=== PATIENT | female | born 1965 | race Caucasian/White ===

== ENCOUNTER 2021-05-12 03:59 | Inpatient (IN) | payer MEDICARE ==
--- NOTE | 2021-05-12 04:03 | ED ---
Recheck HPI - General Stated Complaint: Kidney Stones Time Seen by Provider: 05/12/21 04:02 - Related Data Allergies Allergy/AdvReac Type Severity Reaction Status Date / Time morphine AdvReac Hallucinati Verified 05/12/21 04:20 ons pregabalin [From Lyrica] AdvReac Rash/Hives Verified 05/12/21 04:20 Review of Systems ROS Statement: Those systems with pertinent positive or pertinent negative responses have been documented in the HPI. ROS Other: All systems not noted in ROS Statement are negative. Course Vital Signs 05/12/21 04:11 Temperature 97.8 F Pulse Rate 74 Respiratory 18 Rate Blood Pressure 144/80 O2 Sat by Pulse 95 Oximetry Disposition Clinical Impression: Intractable pain, Kidney stones Narrative: 1cm Ureteral Stone Disposition: ADMITTED IP TO THIS HOSP Condition: Fair Is patient prescribed a controlled substance at d/c from ED?: No Referrals: Rajinder Randall MD [Primary Care Provider] - 1-2 days
[2021-05-12] MEDS ORDERED: SODIUM CHLORIDE 0.9% 500 ML 500 ML IV STA (04:19)
[2021-05-12] MEDS ORDERED: HYDROmorphone 1 MG/ML 1 ML SYRINGE IVP STA (04:19)
[2021-05-12] MEDS ORDERED: TAMSULOSIN 0.4 MG CAP.ER.24H PO STA (04:19)
[2021-05-12] MEDS ORDERED: KETOROLAC 15 MG/ML 1 ML VIAL IVP STA (04:19)
[2021-05-12] MEDS ORDERED: ONDANSETRON 4 MG/2 ML VIAL IVP STA (04:19)
[2021-05-12] MEDS ORDERED: NALOXONE 0.4 MG/ML 1 ML VIAL IV PRN (05:07)
[2021-05-12] MEDS: ONDANSETRON 4 MG/2 ML VIAL IVP PRN ×2 (05:57→21:57)
[2021-05-12] MEDS: SODIUM CHLORIDE 0.9% 1,000 ML IV SCH ×2 (05:58→21:48)
[2021-05-12] MEDS ORDERED: PROMETHAZINE 25 MG TAB PO PRN (09:04)
[2021-05-12] MEDS: LOSARTAN 25 MG TAB PO SCH (09:47)
[2021-05-12] MEDS: FAMOTIDINE 20 MG/2 ML VIAL IV SCH (09:47)
[2021-05-12] MEDS: FLUoxetine HCL 20 MG CAP PO SCH (09:48)
[2021-05-12] MEDS: HEPARIN SODIUM,PORCINE/PF 5,000 UNIT/0.5 ML SYRINGE SQ SCH (09:48)
--- NOTE | 2021-05-12 09:55 | P.HPIM ---
History of Present Illness This is a pleasant 56 years old female with past medical history of hypertension, irritable bowel syndrome/fibromyalgia, GERD, chronic back pain. She is a patient of Dr. Prakash Calvillo Patient is transferred from [facility] due to 1 cm kidney stone and pain control. She has pain when day prior to coming to the emergency room, on the right lower abdomen in the right flank rated as 10/10 in severity with nausea vomiting but she denies hematuria or dysuria. Her abdominal pain is suspected due to kidney stone and emergency room and she was admitted with pain management and surgical consults. Her surgeon is Dr. Mccracken He denies chest pain or dyspnea. No change in urine or bowel habits. No fever Vital signs stable In reviewing [place] record CBC is unremarkable with WBC of 6.7, hemoglobin 13.1, platelets 178 Sodium normal at 141, potassium 3.5. Creatinine normal at 0.6. Liver enzymes elevated with AST 30 and ALT 31 and normal bilirubin at 0.5. Lipase normal at 116. Urinalysis is not suspicious of infection but there is evidence of hematuria with RBC is more than 100, WBC not seen, protein is negative. CT of the abdomen and pelvis without contrast reports: Moderate right hydronephrosis. There is 1 cm obstructing calculus of the right ureteropelvic junction Review of Systems CONSTITUTIONAL: No fever, no malaise, no fatigue. HEENT: No recent visual problems or hearing problems. Denied any sore throat. CARDIOVASCULAR: No orthopnea, PND, no palpitations, no syncope. PULMONARY: No shortness of breath, no cough, no hemoptysis. GASTROINTESTINAL: No diarrhea, no nausea, no vomiting, no abdominal pain. Normoactive bowel sounds. NEUROLOGICAL: No headaches, no weakness, no numbness. HEMATOLOGICAL: Denies any bleeding or petechiae. GENITOURINARY: Denies any burning micturition, frequency, or urgency. MUSCULOSKELETAL/RHEUMATOLOGICAL: Denies any joint pain, swelling, or any muscle pain. ENDOCRINE: Denies any polyuria or polydipsia. Past Medical History Past Medical History: Hypertension Additional Past Medical History / Comment(s): IBS, fibromyalgia, GERD, chronic back pain, History of Any Multi-Drug Resistant Organisms: None Reported Past Surgical History: Back Surgery, Cholecystectomy, Hysterectomy Past Psychological History: Anxiety, Depression Smoking Status: Former smoker Past Alcohol Use History: None Reported Past Drug Use History: None Reported Medications and Allergies Home Medications Medication Instructions Recorded Confirmed Type Atorvastatin [Lipitor] 20 mg PO HS 05/12/21 05/12/21 History Dicyclomine [Bentyl] 20 mg PO Q6H 05/12/21 05/12/21 History FLUoxetine HCL [PROzac] 40 mg PO DAILY 05/12/21 05/12/21 History Losartan [Cozaar] 25 mg PO DAILY 05/12/21 05/12/21 History Meloxicam [Mobic] 15 mg PO DAILY 05/12/21 05/12/21 History Ondansetron HCl [Zofran] 4 mg PO Q8H PRN 05/12/21 05/12/21 History QUEtiapine XR [SEROquel XR] 200 mg PO HS 05/12/21 05/12/21 History SUMAtriptan SUCCINATE [Imitrex] 4 mg SQ BID PRN 05/12/21 05/12/21 History traMADol HCL 50 mg PO TID 05/12/21 05/12/21 History Allergies Allergy/AdvReac Type Severity Reaction Status Date / Time pregabalin [From Lyrica] Allergy Rash/Hives Verified 05/12/21 08:28 morphine AdvReac Hallucinati Verified 05/12/21 08:28 ons Physical Exam Vitals: Vital Signs Temp Pulse Resp BP Pulse Ox 05/12/21 06:00 97.6 F 80 18 135/80 96 05/12/21 04:11 97.8 F 74 18 144/80 95 Intake and Output 05/11/21 05/12/21 05/12/21 22:59 06:59 14:59 Other: Weight 86.183 kg GENERAL: The patient is alert and oriented x3, not in any acute distress. Well developed, well nourished. HEENT: Pupils are round and equally reacting to light. EOMI. No scleral icterus. No conjunctival pallor. Normocephalic, atraumatic. No pharyngeal erythema. No thyromegaly. CARDIOVASCULAR: S1 and S2 present. No murmurs, rubs, or gallops. PULMONARY: Chest is clear to auscultation, no wheezing or crackles. -ABDOMEN: Soft, Mild right flank and lower quadrant abdominal tenderness with no rebound tenderness, nondistended, normoactive bowel sounds. No palpable organomegaly. MUSCULOSKELETAL: No joint swelling or deformity. EXTREMITIES: No cyanosis, clubbing, or pedal edema. NEUROLOGICAL: Gross neurological examination did not reveal any focal deficits. SKIN: No rashes. No petechiae Assessment and Plan Assessment: Severe right flank pain Right ureteropelvic junction stone with right hydronephrosis Plan: This is a pleasant 56 years old female who presents with right kidney stone and hydronephrosis Continue with pain management Urology consult IV hydration Labs and medication were reviewed.. Continue same treatment. Continue with symptomatic treatment. Resume home medication. Monitor lytes and vitals. DVT and GI prophylaxis. Further recommendationsas per clinical course of the patient DVT prophylaxis: Subcutaneous heparin GI Prophylaxis: Pepcid PT/OT: Pending
[2021-05-12] MEDS: DICYCLOMINE 20 MG TAB PO SCH ×2 (11:37→21:49)
--- NOTE | 2021-05-12 12:01 | P.GSCN ---
History of Present Illness Consult date: 05/12/21 History of present illness: 56-year-old female transferred last night from [facility] in [place] with a 1 cm right UPJ stone and persistent colic. The colic and been going on 24-48 hours. She has had intermittent back pain for several weeks. She did have a right ureteral stone removed 2 years ago by . There were no remaining stones at that point in time. She's had no fever or chills. She is still in discomfort at this point in time. Review of Systems All systems: negative - Constitutional Denies fever, Denies weight loss - EENT Eyes: denies blurred vision Ears, nose, mouth and throat: Denies dysphagia - Cardiovascular Denies chest pain, Denies shortness of breath - Respiratory Denies cough, Denies 7 - Gastrointestinal Reports as per HPI - Genitourinary Genitourinary: Denies dysuria, Denies hematuria - Integumentary Denies rash, Denies unusual bruising - Neurological Denies headaches, Denies syncope - Hematologic/Lymphatic Denies easy bleeding, Denies easy bruising Past Medical History Past Medical History: Hypertension Additional Past Medical History / Comment(s): IBS, fibromyalgia, GERD, chronic back pain, History of Any Multi-Drug Resistant Organisms: None Reported Past Surgical History: Back Surgery, Cholecystectomy, Hysterectomy Past Psychological History: Anxiety, Depression Smoking Status: Former smoker Past Alcohol Use History: None Reported Past Drug Use History: None Reported - Past Family History Father Family Medical History: Congestive Heart Failure (CHF), Diabetes Mellitus Additional Family Medical History / Comment(s): Open heart surgery Mother Family Medical History: Diabetes Mellitus Medications and Allergies Home Medications Medication Instructions Recorded Confirmed Type Atorvastatin [Lipitor] 20 mg PO HS 05/12/21 05/12/21 History Dicyclomine [Bentyl] 20 mg PO Q6H 05/12/21 05/12/21 History FLUoxetine HCL [PROzac] 40 mg PO DAILY 05/12/21 05/12/21 History Losartan [Cozaar] 25 mg PO DAILY 05/12/21 05/12/21 History Meloxicam [Mobic] 15 mg PO DAILY 05/12/21 05/12/21 History Ondansetron HCl [Zofran] 4 mg PO Q8H PRN 05/12/21 05/12/21 History QUEtiapine XR [SEROquel XR] 200 mg PO HS 05/12/21 05/12/21 History SUMAtriptan SUCCINATE [Imitrex] 4 mg SQ BID PRN 05/12/21 05/12/21 History traMADol HCL 50 mg PO TID 05/12/21 05/12/21 History Allergies Allergy/AdvReac Type Severity Reaction Status Date / Time pregabalin [From Lyrica] Allergy Rash/Hives Verified 05/12/21 08:28 morphine AdvReac Hallucinati Verified 05/12/21 08:28 ons Surgical - Exam Vital Signs Temp Pulse Resp BP Pulse Ox 97.8 F 74 18 144/80 95 05/12/21 04:11 05/12/21 04:11 05/12/21 04:11 05/12/21 04:11 05/12/21 04:11 - General well developed, well nourished, moderate distress - Eyes PERRL - ENT no hearing loss - Neck trachea midline - Respiratory normal expansion, normal respiratory effort - Cardiovascular Rhythm: regular - Abdomen Abdomen: soft, tender - Integumentary no rash, no growths - Neurologic normal sensation - Musculoskeletal normal posture - Psychiatric oriented to time, oriented to person, oriented to place, speech is normal, memory intact Results - Imaging CT scan - abdomen: report reviewed, image reviewed CT scan - pelvis: report reviewed, image reviewed Assessment and Plan Assessment: Impression: 1 cm UPJ stone with colic. Recommendations: I discussed with patient's options including no treatment, shockwave lithotripsy, right ureteroscopy laser lithotripsy and percutaneous nephrostolithotomy. Due to the persistent pain she would like something done. I will set up for right ureteroscopy with laser lithotripsy and stent placement for tomorrow.
--- NOTE | 2021-05-12 12:49 | XR ---
KUB HISTORY: Right ureteral stone Frontal KUB and 2 images, no comparisons Surgical clips are present in the right upper quadrant. Questionable patchy density at the left costo phrenic angle level, blunting the left chest phrenic angle. Fallopian tubal ligation clips are suspec arie within the pelvis. Calcifications are noted within the pelvis which are indeterminate, possible p hleboliths. Overlying bowel gas may obscure detail. There is a slight spinal curvature, degenerative disc changes present in the visualized spine. No evident bowel obstruction or pneumoperitoneum. IMPRESSION: Indeterminate pelvic calcifications. Postop changes. Question pleural effusion or pleural thickening, possible associated pneumonia or atelectasis, consider chest x-ray correlation.
[2021-05-12] MEDS: HYDROmorphone 1 MG/ML 1 ML SYRINGE IVP PRN ×2 (13:23→20:00)
[2021-05-12] MEDS ORDERED: ATORVASTATIN 20 MG TAB PO SCH (21:00)
[2021-05-12] MEDS: traMADol 50 MG TAB PO PRN (22:08)
[2021-05-12 22:17] LABS: Basophils % (A) 0 %; Eosinophils # (A) 0.1 k/uL (0-0.7); Eosinophils % (A) 2 %; HCT 37.2 % (34.0-46.0); HGB 12.5 gm/dL (11.4-16.0); Lymphocytes # (A) 1.5 k/uL (1.0-4.8); Lymphocytes % (A) 21 %; MCH 31.4 pg (25.0-35.0); MCHC 33.7 g/dL (31.0-37.0); MCV 93.3 fL (80.0-100.0); Mean Platelet Volume 8.2; Monocytes # (A) 0.4 k/uL (0-1.0); Monocytes % (A) 5 %; Neutrophils # (A) 5.2 k/uL (1.3-7.7); Neutrophils % (A) 71 %; Platelet Count 150 k/uL (150-450); RBC 3.99 m/uL (3.80-5.40); RDW 14.3 % (11.5-15.5); WBC 7.3 k/uL (3.8-10.6)
[2021-05-12 22:29] LABS: African American GFR (CKD) >90 (>60 ml/min/1.73 sqM); Anion Gap 6 mmol/L; Blood Urea Nitrogen 10 mg/dL (7-17); Calcium 8.2 mg/dL (8.4-10.2); Carbon Dioxide 24 mmol/L (22-30); Chloride 110 mmol/L (98-107); Glucose 137 mg/dL (74-99); Non-African American GFR(CKD) >90 (>60 ml/min/1.73 sqM); Potassium 3.6 mmol/L (3.5-5.1); Sodium 140 mmol/L (137-145)
[2021-05-13] MEDS: LACTATED RINGERS 1,000 ML IV SCH ×2 (00:11→16:29)
[2021-05-13] MEDS: DICYCLOMINE 20 MG TAB PO SCH ×4 (00:14→17:46)
[2021-05-13] MEDS: FAMOTIDINE 20 MG/2 ML VIAL IV SCH ×2 (00:14→08:34)
[2021-05-13] MEDS: HEPARIN SODIUM,PORCINE/PF 5,000 UNIT/0.5 ML SYRINGE SQ SCH ×2 (00:14→08:11)
[2021-05-13 00:22] LABS: Glucose,Whole Blood 132 mg/dL (75-99)
[2021-05-13] MEDS: QUEtiapine 100 MG TAB PO SCH ×2 (00:28→08:11)
[2021-05-13] MEDS: SODIUM CHLORIDE 0.9% 1,000 ML IV SCH ×2 (03:13→12:14)
[2021-05-13] MEDS ORDERED: HYDROmorphone 0.5 MG/0.5 ML SYRINGE IVP PRN (07:00)
[2021-05-13] MEDS: traMADol 50 MG TAB PO PRN (07:59)
[2021-05-13] MEDS: LOSARTAN 25 MG TAB PO SCH (08:11)
[2021-05-13] MEDS: FLUoxetine HCL 20 MG CAP PO SCH (08:11)
--- NOTE | 2021-05-13 09:11 | XR ---
EXAMINATION TYPE: XR chest 1V DATE OF EXAM: 05/13/2021 COMPARISON: CT abdomen pelvis from outside institution 07/01/2020 HISTORY: Hypoxia TECHNIQUE: Single frontal view of the chest is obtained. FINDINGS: There is no pleural effusion or pneumothorax seen. Possible subsegmental basilar atelectat ic changes are noted, there is a prominent epicardial fat pad present. Linear increased density along the lateral chest margin may reflect scarring. There is persistent elevation of the right hemidiaphr agm. The cardiac silhouette size is within normal limits. The osseous structures are intact. IMPRESSION: Possible basilar atelectasis
[2021-05-13] MEDS ORDERED: HYDROcodone/APAP 7.5-325MG 1 EACH TAB PO PRN (09:51)
[2021-05-13] MEDS ORDERED: IV FLUID CONTINUATION 300 ML IV ONE (10:49)
[2021-05-13] MEDS ORDERED: ONDANSETRON 4 MG/2 ML VIAL IVP ONE (10:51)
[2021-05-13] MEDS ORDERED: DEXAMETHASONE SOD PHOSPHATE 4 MG/ML 1 ML VIAL IVP ONE (10:52)
[2021-05-13] MEDS ORDERED: SCOPOLAMINE 1.5MG/72HR PATCH TRANSDERM ONE (10:52)
[2021-05-13] MEDS ORDERED: PROPOFOL 10 MG/ML 20 ML VIAL IV ONE (11:31)
[2021-05-13] MEDS ORDERED: MIDAZOLAM 2 MG/2 ML VIAL ONE (11:31)
[2021-05-13] MEDS ORDERED: LIDOCAINE 1% INJ 10MG/ML (20 ML MDV) ONE (11:31)
[2021-05-13] MEDS ORDERED: SUCCINYLCHOLINE CHLORIDE 100 MG/5 ML SYR IV ONE (11:31)
[2021-05-13] MEDS ORDERED: fentaNYL (PF) 50 MCG/ML 2 ML AMP ONE (11:31)
[2021-05-13 12:03] LABS: Basophils # (A) 0.02 X 10*3/uL (0.00-0.10); Basophils % (A) 0.3 %; Eosinophils # (A) 0.11 X 10*3/uL (0.04-0.35); Eosinophils % (A) 1.9 %; HCT 33.7 % (37.2-46.3); HGB 11.1 g/dL (12.0-15.0); Lymphocytes # (A) 1.27 X 10*3/uL (0.90-5.00); Lymphocytes % (A) 21.9 %; MCH 30.6 pg (27.0-32.0); MCHC 32.9 g/dL (32.0-37.0); MCV 92.8 fL (80.0-97.0); Mean Platelet Volume 11.3 fL (9.5-12.2); Monocytes % (A) 6.9 %; Neutrophils # (A) 3.96 X 10*3/uL (1.80-7.70); Neutrophils % (A) 68.5 %; Platelet Count 137 X 10*3/uL (140-440); RBC 3.63 X 10*6/uL (4.10-5.20); RDW 13.2 % (11.5-14.5); WBC 5.79 X 10*3/uL (4.50-10.00)
[2021-05-13] MEDS ORDERED: LACTATED RINGERS 1,000 ML IV ONE (12:12)
--- NOTE | 2021-05-13 12:23 | P.OP ---
Date of Procedure: 05/13/21 Preoperative Diagnosis: Right renal stone Postoperative Diagnosis: Same Procedure(s) Performed: Right ureteroscopy with laser lithotripsy , 6 x 24 stent Anesthesia: GRETA Surgeon: Calvin Silva Estimated Blood Loss (ml): 0 Pathology: none sent Condition: stable Disposition: PACU Indications for Procedure: Patient is 56. She is transferred from [facility] with a 1 cm UPJ stone and colic. She's been given treatment options and comes for ureteroscopy laser lithotripsy Description of Procedure: The patient is brought to the operating suite. She is given a general endotracheal anesthesia on the operating table. She's placed lithotomy position with a sterile prep and drape. Cystoscopy with Foroblique lens and 21-Indonesian sheath identifies a normal urethra. The bladder mucosa is unremarkable. The right ureteral orifice is identified and intubated with an 035 wire passed up into the renal pelvis. The stone is seen in the renal pelvis on fluoroscopy. Over the wire is then passed an 32-23-Vffzux reentry sheath. The inner sheath is removed. The flexible ureteroscope was passed up into the renal pelvis where the stone is seen. As a relatively new looking stone as it is spiculated and yellowish. With the 270 laser probe the stone is dusted into tiny fragments that will easily passed up. The ureteroscope was removed. Over the wires passed a 6 x 24 double-J catheter that coils in the renal pelvis and the bladder the bladder strain the patient is awake and returned recovery room good condition. She will be discharged home in the next 24 hours and will follow-up in the office in one week for stent removal.
--- NOTE | 2021-05-13 12:24 | P.PN ---
Subjective Progress Note Date: 05/13/21 The patient underwent successful laser lithotripsy to her 1 cm stone in the right renal pelvis. She has a stent in. She can be discharged home later today or tomorrow. I will see her in the office in one week for cystoscopy stent removal Objective - Vital Signs Vital signs: Vital Signs Temp 98.3 F 05/13/21 10:53 Pulse 88 05/13/21 10:53 Resp 16 05/13/21 10:53 BP 143/73 05/13/21 10:53 Pulse Ox 92 L 05/13/21 10:53 Intake & Output 05/12/21 05/13/21 05/13/21 18:59 06:59 18:59 Intake Total 400 Output Total 1 Balance 399 Weight 86.183 kg Intake: IV 400 Output: Estimated Blood Loss 1 Other: # Voids 1 - Labs CBC & Chem 7: 05/13/21 07:13 05/12/21 21:56 Labs: Abnormal Lab Results - Last 24 Hours (Table) 05/12/21 05/13/21 05/13/21 Range/Units 21:56 00:20 07:13 RBC 3.63 L (4.10-5.20) X 10*6/uL Hgb 11.1 L (12.0-15.0) g/dL Hct 33.7 L (37.2-46.3) % Plt Count 137 L (140-440) X 10*3/uL Chloride 110 H (98-107) mmol/L Glucose 137 H (74-99) mg/dL POC Glucose (mg/dL) 132 H (75-99) mg/dL Calcium 8.2 L (8.4-10.2) mg/dL
[2021-05-13 12:32] LABS: African American GFR (CKD) 118.9 (60.0-200.0); Anion Gap 10.8 mmol/L (4.00-12.00); BUN/Creat Ratio 16.67 Ratio (12.00-20.00); Calcium 8.2 mg/dL (8.7-10.3); Carbon Dioxide 22.2 mmol/L (21.6-31.8); Non-African American GFR(CKD) 102.6 (60.0-200.0); Potassium 3.3 mmol/L (3.5-5.5)
[2021-05-13] MEDS ORDERED: KETOROLAC 15 MG/ML 1 ML VIAL ONE (12:52)
[2021-05-13] MEDS ORDERED: KETOROLAC 15 MG/ML 1 ML VIAL IVP ONE (12:52)
[2021-05-13] MEDS ORDERED: POTASSIUM CHLORIDE ER 20 MEQ TAB.ER PO STA (14:57)
[2021-05-13 16:12] VITALS: RESP 18
--- NOTE | 2021-05-13 16:20 | FL ---
Fluoroscopy HISTORY: Renal calculus 14 seconds fluoroscopy time supplied to the referring clinician. 5 intraoperative C-arm images docum ent the procedure. See dictated report from urology.
[2021-05-13 16:42] VITALS: BP 127/78; PULSE 77; TEMP 98.1
--- NOTE | 2021-05-14 00:10 | P.DS ---
Providers Date of admission: 05/12/21 05:07 Attending physician: Ronnie Ortega Consults: 05/12/21 05:08 Consult Physician Routine Consulting Provider: Calvin iSlva Consult Reason/Comments: stones Do you want consulting provider notified?: Yes Primary care physician: Rajinder Hauser Course: Diagnoses: Severe right flank pain, resolved upon discharge Right ureteropelvic junction stone with right hydronephrosis. Status post right ureteroscopy with Laser lithotripsy 6 x 24 stent on 05/13 Hospital course: This is a pleasant 56 years old female with past medical history of hypertension, irritable bowel syndrome/fibromyalgia, GERD, chronic back pain. She is a patient of Dr. Prakash Calvillo Patient is transferred from [facility] due to 1 cm kidney stone and pain control. She has pain when day prior to coming to the emergency room, on the right lower abdomen in the right flank rated as 10/10 in severity with nausea vomiting but she denies hematuria or dysuria. CT of the abdomen and pelvis without contrast reports: Moderate right hydronephrosis. There is 1 cm obstructing calculus of the right ureteropelvic junction Patient was evaluated by Dr. Black neurologist. She underwent right u reteroscopy with Laser lithotripsy 6 x 24 stent on 05/13. After the procedure patient pain is resolved. Patient was walking in the hallway asking to be discharged home today. Patient was cleared by Dr. Black to go home today Chest x-ray no acute process. We checked her oxygen at rest and exertion, she is in room air and does not need any oxygen. She denies chest pain or dyspnea. Denies any other physical complaints Problems and management plan were discussed with the patient and he verbalized understanding and acceptance Patient was found stable and can be discharged home however he needs follow-up as an outpatient. Patient was instructed to follow up with PCP Dr. Randall within one week and patient agrees patient was instructed to follow up with Dr. Black in 1 week for cystoscopy and removal of stents, staff could not make appointment for the patient and patient wants to make her own appointment and does not want to wait in the hospital for that. Physical exam Gen: patient is a AAOx3, no distress CVS: S1-S2, RRR, no murmur Lungs: B/L CTA, no wheezing Abdomen: soft, no distention, no tenderness, positive bowel sounds Extremity: no leg edema or induration Time spent more than 35 minutes Patient Condition at Discharge: Fair Plan - Discharge Summary New Discharge Prescriptions: Continue traMADol HCL 50 mg PO TID Dicyclomine [Bentyl] 20 mg PO Q6H FLUoxetine HCL [PROzac] 40 mg PO DAILY Losartan [Cozaar] 25 mg PO DAILY QUEtiapine XR [SEROquel XR] 200 mg PO HS Atorvastatin [Lipitor] 20 mg PO HS SUMAtriptan SUCCINATE [Imitrex] 4 mg SQ BID PRN PRN Reason: Migraine Headache Ondansetron HCl [Zofran] 4 mg PO Q8H PRN PRN Reason: Nausea And Vomiting Discontinued Meloxicam [Mobic] 15 mg PO DAILY Discharge Medication List Atorvastatin [Lipitor] 20 mg PO HS 05/12/21 [History] Dicyclomine [Bentyl] 20 mg PO Q6H 05/12/21 [History] FLUoxetine HCL [PROzac] 40 mg PO DAILY 05/12/21 [History] Losartan [Cozaar] 25 mg PO DAILY 05/12/21 [History] Ondansetron HCl [Zofran] 4 mg PO Q8H PRN 05/12/21 [History] QUEtiapine XR [SEROquel XR] 200 mg PO HS 05/12/21 [History] SUMAtriptan SUCCINATE [Imitrex] 4 mg SQ BID PRN 05/12/21 [History] traMADol HCL 50 mg PO TID 05/12/21 [History] Follow up Appointment(s)/Referral(s): Rajinder Randall MD [Primary Care Provider] - 1-2 days Calvin Silva MD [STAFF PHYSICIAN] - 1 Week (Cystoscopy with stent removal. Office will call with schedule time) Patient Instructions/Handouts: *Surgery [facility] - Scopalamine Patch Instructions, Cystoscopy (DC), Lithotripsy (DC) Activity/Diet/Wound Care/Special Instructions: resume previous diet activity is restricted till you see your doctor Discharge Disposition: HOME SELF-CARE
== END 2021-05-13 18:30 | disposition home or self-care (01) | DRG 694 ==
LOC: EC 03:59 → 4SSUR 05:07
PROVIDERS: ADMIT Hospitalist; ATTEND Hospitalist
PROC: 0T9680Z Drainage of Right Ureter with Drainage Device, Via Natural or Artificial Opening Endoscopic (ICD-10-PCS; principal; 2021-05-13 11:00)
PROC: 0TF68ZZ Fragmentation in Right Ureter, Via Natural or Artificial Opening Endoscopic (ICD-10-PCS; 2021-05-13 11:00)
DX: N13.2 Hydronephrosis with renal and ureteral calculous obstruction (principal); I10 Essential (primary) hypertension; K58.9 Irritable bowel syndrome, unspecified; K21.9 Gastro-esophageal reflux disease without esophagitis; G89.29 Other chronic pain; M54.9 Dorsalgia, unspecified; M79.7 Fibromyalgia; F32.9 Major depressive disorder, single episode, unspecified; F41.9 Anxiety disorder, unspecified; Z90.710 Acquired absence of both cervix and uterus; Z87.891 Personal history of nicotine dependence; Z82.49 Family history of ischemic heart disease and other diseases of the circulatory system; Z83.3 Family history of diabetes mellitus; Z88.8 Allergy status to other drugs, medicaments and biological substances; Z79.1 Long term (current) use of non-steroidal anti-inflammatories (NSAID); Z79.899 Other long term (current) drug therapy
CPT/HCPCS: 71045; 74018; 80048; 83605; 85025; 87040; 96361; 96374; 96375; 99285

== ENCOUNTER 2021-05-19 10:07 | Emergency (ER) | payer MEDICARE ==
[2021-05-19 10:21] VITALS: BP 147/84; PULSE 90; RESP 18; TEMP 98
[2021-05-19] MEDS ORDERED: SODIUM CHLORIDE 0.9% 1,000 ML IV ONE (10:31)
[2021-05-19] MEDS ORDERED: ONDANSETRON 4 MG/2 ML VIAL IVP STA (10:31)
[2021-05-19] MEDS ORDERED: KETOROLAC 15 MG/ML 1 ML VIAL IVP STA (10:32)
[2021-05-19 11:04] LABS: Basophils % (A) 0 %; Eosinophils # (A) 0.2 k/uL (0-0.7); Eosinophils % (A) 2 %; HCT 37.8 % (34.0-46.0); HGB 13.1 gm/dL (11.4-16.0); Lymphocytes # (A) 0.9 k/uL (1.0-4.8); Lymphocytes % (A) 9 %; MCH 30.8 pg (25.0-35.0); MCHC 34.6 g/dL (31.0-37.0); Mean Platelet Volume 7.9; Monocytes # (A) 0.4 k/uL (0-1.0); Monocytes % (A) 4 %; Neutrophils # (A) 8.1 k/uL (1.3-7.7); Neutrophils % (A) 83 %; Platelet Count 213 k/uL (150-450); RBC 4.25 m/uL (3.80-5.40); RDW 13.8 % (11.5-15.5); WBC 9.7 k/uL (3.8-10.6)
[2021-05-19 11:09] LABS: Appearance,Urine Turbid (Clear); Bacteria,Urine Rare /hpf; Bilirubin,Urine Negative (Negative); Blood,Urine Large (Negative); Color,Urine Yellow; Glucose,Urine (UA) Negative (Negative); Ketones,Urine Negative (Negative); Leukocyte Esterase,Urine Large (Negative); Mucus,Urine Many /hpf; Nitrite,Urine Negative (Negative); Protein,Urine 1+ (Negative); RBC,Urine 105 /hpf (0-5); Specific Gravity,Urine 1.015 (1.001-1.035); Squamous Epithelial Cell,Urine 7 /hpf (0-4); Urobilinogen,Urine <2.0 mg/dL (<2.0); WBC,Urine >182 /hpf (0-5)
[2021-05-19 11:16] LABS: ALT 17 U/L (4-34); AST 28 U/L (14-36); African American GFR (CKD) >90 (>60 ml/min/1.73 sqM); Alkaline Phosphatase 95 U/L (38-126); Anion Gap 10 mmol/L; Blood Urea Nitrogen 14 mg/dL (7-17); Calcium 9.3 mg/dL (8.4-10.2); Carbon Dioxide 25 mmol/L (22-30); Chloride 103 mmol/L (98-107); Glucose 123 mg/dL (74-99); Non-African American GFR(CKD) >90 (>60 ml/min/1.73 sqM); Sodium 138 mmol/L (137-145); Total Bilirubin 0.7 mg/dL (0.2-1.3); Total Protein 6.9 g/dL (6.3-8.2)
[2021-05-19 11:20] LABS: Potassium 3.9 mmol/L (3.5-5.1)
--- NOTE | 2021-05-19 11:23 | ED ---
Female Urogenital HPI - General Chief complaint: Urogenital Stated complaint: kidney stones Time Seen by Provider: 05/19/21 10:24 Source: patient, RN notes reviewed Mode of arrival: ambulatory Limitations: no limitations - History of Present Illness Initial comments: Patient is a 56-year-old female that presents to emergency room complaining of right flank pain with radiation to her right lower abdomen and groin. She notes that she was recently seen by Dr. Silva on 05/13/2021 for a uroscopy right ureter stent and laser lithotripsy. She was discharged from the hospital in stable condition with no pain on 05/13/2021. She notes that she has a follow-up with him tomorrow to have the stent removed but due to increasing pain that started last night and has been unrelieved with at home therapies came into the emergency department. She notes that this feels very similar to her last kidney stone prior to the surgery. She was otherwise a well-appearing 56-year-old female. She noted that her pain was approximately a 10 out of 10 with no relief. She denied any alleviating or aggravating factors. She denied any chest pain shortness breath headache vomiting diarrhea constipation fever fatigue chills. - Related Data Home Medications Medication Instructions Recorded Confirmed Atorvastatin [Lipitor] 20 mg PO HS 05/12/21 05/19/21 Dicyclomine [Bentyl] 20 mg PO Q6H 05/12/21 05/19/21 FLUoxetine HCL [PROzac] 40 mg PO DAILY 05/12/21 05/19/21 Losartan [Cozaar] 25 mg PO DAILY 05/12/21 05/19/21 Ondansetron HCl [Zofran] 4 mg PO Q8H PRN 05/12/21 05/19/21 QUEtiapine XR [SEROquel XR] 200 mg PO HS 05/12/21 05/19/21 SUMAtriptan SUCCINATE [Imitrex] 4 mg SQ BID PRN 05/12/21 05/19/21 traMADol HCL 50 mg PO TID 05/12/21 05/19/21 Previous Rx's Medication Instructions Recorded Ketorolac [Toradol] 10 mg PO Q8HR #15 tab 05/19/21 Allergies Allergy/AdvReac Type Severity Reaction Status Date / Time pregabalin [From Lyrica] Allergy Rash/Hives Verified 05/19/21 10:51 morphine AdvReac Hallucinati Verified 05/19/21 10:51 ons Review of Systems ROS Statement: Those systems with pertinent positive or pertinent negative responses have been documented in the HPI. ROS Other: All systems not noted in ROS Statement are negative. Past Medical History Past Medical History: Hypertension Additional Past Medical History / Comment(s): IBS, fibromyalgia, GERD, chronic back pain, History of Any Multi-Drug Resistant Organisms: None Reported Past Surgical History: Back Surgery, Cholecystectomy, Hysterectomy Past Psychological History: Anxiety, Depression Smoking Status: Former smoker Past Alcohol Use History: None Reported Past Drug Use History: None Reported - Past Family History Father Family Medical History: Congestive Heart Failure (CHF), Diabetes Mellitus Additional Family Medical History / Comment(s): Open heart surgery Mother Family Medical History: Diabetes Mellitus General Exam Limitations: no limitations General appearance: alert, in no apparent distress Head exam: Present: atraumatic, normocephalic, normal inspection Eye exam: Present: normal appearance, PERRL, EOMI. Absent: scleral icterus, conjunctival injection, periorbital swelling Neck exam: Present: normal inspection Respiratory exam: Present: normal lung sounds bilaterally. Absent: respiratory distress, wheezes, rales, rhonchi, stridor Cardiovascular Exam: Present: regular rate, normal rhythm, normal heart sounds. Absent: systolic murmur, diastolic murmur, rubs, gallop, clicks GI/Abdominal exam: Present: soft, tenderness (Very minimal right lower quadrant), normal bowel sounds. Absent: distended, guarding, rebound, rigid Extremities exam: Present: normal inspection, full ROM, normal capillary refill. Absent: tenderness, pedal edema, joint swelling, calf tenderness Back exam: Present: normal inspection, CVA tenderness (R) Neurological exam: Present: alert, oriented X3 Psychiatric exam: Present: normal affect, normal mood Skin exam: Present: warm, dry, intact, normal color. Absent: rash Course Vital Signs 05/19/21 10:17 Temperature 98 F Pulse Rate 90 Respiratory 18 Rate Blood Pressure 147/84 O2 Sat by Pulse 93 L Oximetry Medical Decision Making - Medical Decision Making 56-year-old female complaining of right flank pain with radiation a right lower quadrant, ureteroscopy with stent placement as her lithotripsy done on 05/13/2021. Labs, KUB, ultrasound of the kidneys ureter and bladder, 1 L normal saline, 15 mg Toradol, 4 mg of Zofran ordered. Labs unremarkable. Urinalysis:Large amount red blood cells, urine or blood cells 105, urine right blood cells 182, rare bacteria. Upon reevaluation patient states that his pain is much better and under control at this time. She feels comfortable going home with her follow-up scheduled for tomorrow. Case discussed with Dr. Wills, patient can discharge home - Lab Data Result diagrams: 05/19/21 10:51 05/19/21 10:51 Lab Results 05/19/21 05/19/21 05/19/21 Range/Units 10:51 10:51 10:51 WBC 9.7 (3.8-10.6) k/uL RBC 4.25 (3.80-5.40) m/uL Hgb 13.1 (11.4-16.0) gm/dL Hct 37.8 (34.0-46.0) % MCV 89.0 (80.0-100.0) fL MCH 30.8 (25.0-35.0) pg MCHC 34.6 (31.0-37.0) g/dL RDW 13.8 (11.5-15.5) % Plt Count 213 (150-450) k/uL MPV 7.9 Neutrophils % 83 % Lymphocytes % 9 % Monocytes % 4 % Eosinophils % 2 % Basophils % 0 % Neutrophils # 8.1 H (1.3-7.7) k/uL Lymphocytes # 0.9 L (1.0-4.8) k/uL Monocytes # 0.4 (0-1.0) k/uL Eosinophils # 0.2 (0-0.7) k/uL Basophils # 0.0 (0-0.2) k/uL Sodium (137-145) mmol/L Potassium (3.5-5.1) mmol/L Chloride (98-107) mmol/L Carbon Dioxide (22-30) mmol/L Anion Gap mmol/L BUN (7-17) mg/dL Creatinine (0.52-1.04) mg/dL Est GFR (CKD-EPI)AfAm (>60 ml/min/1.73 sqM) Est GFR (CKD-EPI)NonAf (>60 ml/min/1.73 sqM) Glucose (74-99) mg/dL Calcium (8.4-10.2) mg/dL Total Bilirubin (0.2-1.3) mg/dL AST (14-36) U/L ALT (4-34) U/L Alkaline Phosphatase (38-126) U/L Total Protein (6.3-8.2) g/dL Albumin (3.5-5.0) g/dL Urine Color Yellow Urine Appearance Turbid H (Clear) Urine pH 6.0 (5.0-8.0) Ur Specific [place] 1.015 (1.001-1.035) Urine Protein 1+ H (Negative) Urine Glucose (UA) Negative (Negative) Urine Ketones Negative (Negative) Urine Blood Large H (Negative) Urine Nitrite Negative (Negative) Urine Bilirubin Negative (Negative) Urine Urobilinogen <2.0 (<2.0) mg/dL Ur Leukocyte Esterase Large H (Negative) Urine RBC 105 H (0-5) /hpf Urine WBC >182 H (0-5) /hpf Urine WBC Clumps Few H (None) /hpf Ur Squamous Epith Cells 7 H (0-4) /hpf Urine Bacteria Rare H (None) /hpf Urine Mucus Many H (None) /hpf Urine HCG, Qual Not Detected (Not Detectd) 05/19/21 Range/Units 10:51 WBC (3.8-10.6) k/uL RBC (3.80-5.40) m/uL Hgb (11.4-16.0) gm/dL Hct (34.0-46.0) % MCV (80.0-100.0) fL MCH (25.0-35.0) pg MCHC (31.0-37.0) g/dL RDW (11.5-15.5) % Plt Count (150-450) k/uL MPV Neutrophils % % Lymphocytes % % Monocytes % % Eosinophils % % Basophils % % Neutrophils # (1.3-7.7) k/uL Lymphocytes # (1.0-4.8) k/uL Monocytes # (0-1.0) k/uL Eosinophils # (0-0.7) k/uL Basophils # (0-0.2) k/uL Sodium 138 (137-145) mmol/L Potassium 3.9 (3.5-5.1) mmol/L Chloride 103 (98-107) mmol/L Carbon Dioxide 25 (22-30) mmol/L Anion Gap 10 mmol/L BUN 14 (7-17) mg/dL Creatinine 0.64 (0.52-1.04) mg/dL Est GFR (CKD-EPI)AfAm >90 (>60 ml/min/1.73 sqM) Est GFR (CKD-EPI)NonAf >90 (>60 ml/min/1.73 sqM) Glucose 123 H (74-99) mg/dL Calcium 9.3 (8.4-10.2) mg/dL Total Bilirubin 0.7 (0.2-1.3) mg/dL AST 28 (14-36) U/L ALT 17 (4-34) U/L Alkaline Phosphatase 95 (38-126) U/L Total Protein 6.9 (6.3-8.2) g/dL Albumin 4.0 (3.5-5.0) g/dL Urine Color Urine Appearance (Clear) Urine pH (5.0-8.0) Ur Specific [place] (1.001-1.035) Urine Protein (Negative) Urine Glucose (UA) (Negative) Urine Ketones (Negative) Urine Blood (Negative) Urine Nitrite (Negative) Urine Bilirubin (Negative) Urine Urobilinogen (<2.0) mg/dL Ur Leukocyte Esterase (Negative) Urine RBC (0-5) /hpf Urine WBC (0-5) /hpf Urine WBC Clumps (None) /hpf Ur Squamous Epith Cells (0-4) /hpf Urine Bacteria (None) /hpf Urine Mucus (None) /hpf Urine HCG, Qual (Not Detectd) - Radiology Data Radiology results: report reviewed, image reviewed Ultrasound of the kidneys renal and bladder: Moderate right-sided hydronephrosis is again seen. The proximal right ureteral calculus is not identified as noted on CT from outside institution. Possible right extrarenal pelvis focal caliectasis left kidney. KUB: Overall nonobstructive bowel gas pattern. Disposition Clinical Impression: Hydronephrosis, Kidney stones Disposition: HOME SELF-CARE Condition: Stable Instructions (If sedation given, give patient instructions): Urinary Tract Infection in Women (ED) Additional Instructions: Please return to the Emergency Department if symptoms worsen or any other concerns. Follow-up with primary care in 1-2 days. Follow-up with urologist as planned tomorrow. Take Tylenol 3 as prescribed and directed. Is patient prescribed a controlled substance at d/c from ED?: No Referrals: Rajinder Randall MD [Primary Care Provider] - 1-2 days Calvin Silva MD [STAFF PHYSICIAN] - 1-2 days Time of Disposition: 12:44
--- NOTE | 2021-05-19 11:31 | XR ---
EXAMINATION TYPE: XR KUB DATE OF EXAM: 05/19/2021 COMPARISON: NONE HISTORY: Pain TECHNIQUE: Single supine KUB image of the abdomen is obtained FINDINGS: Small bowel demonstrates no evidence for dilatation or air fluid levels. Gas and fecal material is seen in non-distended colon. No convincing evidence for pneumoperitoneum. No unusual calcifications. Right-sided ureteral stent is noted to be in place. The lung bases are clear. The osseous structures are intact. IMPRESSION: 1. Overall nonobstructive bowel gas pattern.
--- NOTE | 2021-05-19 11:48 | US ---
EXAMINATION TYPE: US kidneys/renal and bladder DATE OF EXAM: 05/19/2021 COMPARISON: Outside CT on PACS 05/12/2021 CLINICAL HISTORY: right flank pain. History of renal stone lasered last weekend. EXAM MEASUREMENTS: Right Kidney: 10.9 x 6.4 x 7.7 cm Left Kidney: 11.4 x 5.7 x 6.3 cm Right Kidney: Moderate hydronephrosis Left Kidney: cyst renal pelvis measures 2.0 x 1.5 x 2.2 cm., May represent a focal caliectasis. Bladder: not well distended Bilateral Jets seen: No Cortical medullary differentiation is maintained. IMPRESSION: Moderate right-sided hydronephrosis is again seen, the proximal right ureteral calculus is not identi fied as noted on CT from outside institution, possible right extrarenal pelvis, focal caliectasis lef t kidney
== END 2021-05-19 13:37 | disposition home or self-care (01) ==
LOC: EC 10:07
DX: N13.30 Unspecified hydronephrosis (principal); N20.0 Calculus of kidney; I10 Essential (primary) hypertension; F32.9 Major depressive disorder, single episode, unspecified; F41.9 Anxiety disorder, unspecified; Z87.891 Personal history of nicotine dependence; Z79.899 Other long term (current) drug therapy
CPT/HCPCS: 36415; 80053; 85025; 81001; 81025; 87086; 74018; 76770; 99284; 96374; 96375; 96361 ×3; J2405; J1885

== ENCOUNTER 2025-01-02 18:36 | Emergency (ER) | payer MEDICARE ==
[2025-01-02 18:46] VITALS: TEMP 98.8
--- NOTE | 2025-01-02 19:01 | ED ---
Nausea/Vomiting/Diarrhea HPI - General Chief complaint: Nausea/Vomiting/Diarrhea Stated complaint: NVD Time Seen by Provider: 01/02/25 18:51 Source: patient, EMS, RN notes reviewed Mode of arrival: EMS Limitations: no limitations - History of Present Illness Initial comments: This is a 59-year-old female with history of IBS, GERD and cholecystectomy pre senting via EMS for GI symptoms x 2 days. Patient endorses intermittent epigastric cramping (6/10), N/V/D. Patient endorses eating a suspicious hamburger yesterday prior to start of symptoms. Endorses receiving 500 mL normal saline and Zofran from EMS noting improvement in symptoms. Denies known sick contact. Patient denies fever, chills, chest pain, dyspnea dizziness, hematemesis, hematochezia, melena, urinary symptoms. MD complaint: nausea, vomiting, diarrhea, abdominal pain Onset/Timin -: days(s) Description of Vomiting: food contents, watery Description of Diarrhea: water Associated Abdominal Pain: Yes Location: epigastric Severity scale (1-10): 7 Quality: cramping Consistency: intermittent Context: possible food poisoning - Related Data Home Medications Medication Instructions Recorded Confirmed Dicyclomine [Bentyl] 20 mg PO BID 05/12/21 01/02/25 QUEtiapine XR [SEROquel XR] 200 mg PO HS 05/12/21 01/02/25 traMADol HCL 50 mg PO BID 05/12/21 01/02/25 Cholecalciferol [Vitamin D3 (25 25 mcg PO DAILY 01/02/25 01/02/25 Mcg = 1000 Iu)] Diphenoxylate HCl/Atropine 2 tab PO DAILY PRN 01/02/25 01/02/25 [Lomotil 2.5-0.025 mg Tablet] Loratadine 10 mg PO DAILY 01/02/25 01/02/25 Losartan Potassium 100 mg PO DAILY 01/02/25 01/02/25 Potassium Chloride ER [K-Dur 20] 20 meq PO BID 01/02/25 01/02/25 Topiramate 25 mg PO DAILY 01/02/25 01/02/25 Topiramate [Topamax] 50 mg PO HS 01/02/25 01/02/25 Venlafaxine HCl [Effexor XR] 150 mg PO DAILY 01/02/25 01/02/25 Vitamin B Complex 1 cap PO DAILY 01/02/25 01/02/25 Previous Rx's Medication Instructions Recorded Ondansetron [Zofran] 4 mg PO Q8HR PRN #10 tab 01/02/25 Allergies Allergy/AdvReac Type Severity Reaction Status Date / Time pregabalin [From Lyrica] Allergy Rash/Hives Verified 01/02/25 20:43 morphine AdvReac Hallucinati Verified 01/02/25 20:43 ons Review of Systems ROS Statement: Those systems with pertinent positive or pertinent negative responses have been documented in the HPI. ROS Other: All systems not noted in ROS Statement are negative. Past Medical History Past Medical History: Hypertension Additional Past Medical History / Comment(s): IBS, fibromyalgia, GERD, chronic back pain, History of Any Multi-Drug Resistant Organisms: None Reported Past Surgical History: Back Surgery, Cholecystectomy, Hysterectomy Past Psychological History: Anxiety, Depression Smoking Status: Former smoker Past Alcohol Use History: None Reported Past Drug Use History: None Reported - Past Family History Father Family Medical History: Congestive Heart Failure (CHF), Diabetes Mellitus Additional Family Medical History / Comment(s): Open heart surgery Mother Family Medical History: Diabetes Mellitus General Exam Limitations: no limitations General appearance: alert, in no apparent distress Head exam: Present: atraumatic, normocephalic, normal inspection Eye exam: Present: normal appearance, PERRL, EOMI. Absent: scleral icterus, conjunctival injection, periorbital swelling ENT exam: Present: normal exam, mucous membranes moist Neck exam: Present: normal inspection. Absent: tenderness, meningismus, lymphadenopathy Respiratory exam: Present: normal lung sounds bilaterally. Absent: respiratory distress, wheezes, rales, rhonchi, stridor, accessory muscle use Cardiovascular Exam: Present: regular rate, normal rhythm, normal heart sounds. Absent: systolic murmur, diastolic murmur, rubs, gallop, clicks GI/Abdominal exam: Present: soft, tenderness (Positive epigastric TTP without guarding), normal bowel sounds, other (Negative McBurney point, Rovsing, Patricia sign). Absent: distended, guarding, rebound, rigid Extremities exam: Present: normal inspection, full ROM, normal capillary refill. Absent: tenderness, pedal edema, joint swelling, calf tenderness Back exam: Present: normal inspection Neurological exam: Present: alert, oriented X3, CN II-XII intact Psychiatric exam: Present: normal affect, normal mood Skin exam: Present: warm, dry, intact, normal color. Absent: rash Course Vital Signs 01/02/25 01/02/25 01/02/25 18:40 19:27 21:00 Temperature 98.8 F Pulse Rate 112 H 110 H 95 Respiratory 18 16 16 Rate Blood Pressure 132/83 124/58 119/71 O2 Sat by Pulse 98 99 99 Oximetry 01/02/25 22:21 Temperature Pulse Rate 101 H Respiratory 16 Rate Blood Pressure 105/58 O2 Sat by Pulse 100 Oximetry Medical Decision Making - Medical Decision Making Was pt. sent in by a medical professional or institution (, PA, [employer], urgent care, hospital, or jail...) When possible be specific @ -No Did you speak to anyone other than the patient for history (EMS, parent, family, police, friend...)? What history was obtained from this source @ -No Did you review nursing and triage notes (agree or disagree)? Why? @ -I reviewed and agree with nursing and triage notes Were old charts reviewed (outside hosp., previous admission, EMS record, old EKG, old radiological studies, urgent care reports/EKG's, jail records)? Report findings @ -No old charts were reviewed Differential Diagnosis (chest pain, altered mental status, abdominal pain women, abdominal pain men, vaginal bleeding, weakness, fever, dyspnea, syncope, headache, dizziness, GI bleed, back pain, seizure, CVA, palpatations, mental health, musculoskeletal)? @ -Differential Abdominal Pain Women: Appendicitis, Cholecystitis, diverticulosis, ischemic bowel, pancreatitis, hepatitis, UTI, gastroenteritis, AAA, incarcerated hernia, bowel obstruction, constipation, inflammatory bowel, hepatitis, peptic ulcer disease, splenic infarction, perforated viscus, vulvitis, ovarian torsion, PID, kidney stone, placenta abruption, this is not meant to be an all-inclusive list EKG interpreted by me (3pts min.). @ -Sinus rhythm with T wave inversion noted in V2. No prior ECGs to compare if this is normal for patient. No ST deviation. Ventricular rate 97 bpm, KRISTOFER 148 ms, QRS 84 ms, QTc 374 ms. X-rays interpreted by me (1pt min.). @ -CXR shows no acute cardiopulmonary process CT interpreted by me (1pt min.). @ -None done U/S interpreted by me (1pt. min.). @ -None done What testing was considered but not performed or refused? (CT, X-rays, U/S, labs)? Why? @ -None What meds were considered but not given or refused? Why? @ -None Did you discuss the management of the patient with other professionals (professionals i.e. DrCarolynn, PA, [employer], lab, RT, psych nurse, social worker masters, classroom assistant, teacher, appeals officer, case finisher)? Give summary @ -No Was smoking cessation discussed for >3mins.? @ -No Was critical care preformed (if so, how long)? @ -No Were there social determinants of health that impacted care today? How? ( Homelessness, low income, unemployed, alcoholism, drug addiction, transportation, low edu. Level, literacy, decrease access to med. care, usp, rehab)? @ -No Was there de-escalation of care discussed even if they declined (Discuss DNR or withdrawal of care, Hospice)? DNR status @ -No What co-morbidities impacted this encounter? (DM, HTN, Smoking, COPD, CAD, Cancer, CVA, ARF, Chemo, Hep., AIDS, mental health diagnosis, sleep apnea, morbid obesity)? @ -None Was patient admitted / discharged? Hospital course, mention meds given and route, prescriptions, significant lab abnormalities, going to OR and other pertinent info. @ -Lab work shows leukocytosis 13.56 with left shift. Hyperglycemia 142, lactic acidosis 2.4 and SEB noted. Troponin and Cepheid test negative. UA shows contaminated urine with calcium phosphate crystals. CXR shows no acute cardiopulmonary process. Patient initially provided IV normal saline, Pepcid, Protonix, p.o. Tylenol and viscous lidocaine. Repeat BMP shows hypokalemia 3.4 with ongoing SEB and hyperglycemia 114. Additional IV normal saline provided as well as p.o. potassium chloride, potassium bicarb and IV Zofran. Physician notified of ongoing SEB. Advised patient to increase oral fluid intake (water, Gatorade/Pedialyte), hu tea/henry for nausea. Patient discharged with Zofran starter pack. Zofran sent to patient's pharmacy. Advised follow-up with PCP in the next 24-48 hours. Return to ER if experiencing worsening symptoms. Discus sed patient with Dr. Bingham. Undiagnosed new problem with uncertain prognosis? @ -No Drug Therapy requiring intensive monitoring for toxicity (Heparin, Nitro, Insulin, Cardizem)? @ -No Were any procedures done? @ -No Diagnosis/symptom? @ -SEB, gastroenteritis, dehydration Acute, or Chronic, or Acute on Chronic? @ -Acute Uncomplicated (without systemic symptoms) or Complicated (systemic symptoms)? @ -Uncomplicated Side effects of treatment? @ -No Exacerbation, Progression, or Severe Exacerbation? @ -No Poses a threat to life or bodily function? How? (Chest pain, USA, GA, pneumonia, PE, COPD, DKA, ARF, appy, cholecystitis, CVA, Diverticulitis, Homicidal, Suicidal, threat to staff... and all critical care pts) @ -No - Lab Data Result diagrams: 01/02/25 19:15 01/02/25 20:48 Lab Results 01/02/25 01/02/25 01/02/25 Range/Units 19:15 19:15 19:15 WBC 13.56 H (4.50-10.00) 10*3/uL RBC 4.05 L (4.10-5.20) 10*6/uL Hgb 13.0 (12.0-15.0) g/dL Hct 37.4 (37.2-46.3) % MCV 92.3 (80.0-97.0) fL MCH 32.1 H (27.0-32.0) pg MCHC 34.8 (32.0-37.0) g/dL Plt Count 224 (140-440) 10*3/uL MPV 10.6 (9.5-12.2) fL Immature Gran % (Auto) 0.4 % Neutrophils % 87.4 % Lymphocytes % 6.5 % Monocytes % 5.2 % Eosinophils % 0.1 % Basophils % 0.4 % Immature Gran # 0.06 H (0.00-0.04) 10*3/uL Neutrophils # 11.84 H (1.80-7.70) 10*3/uL Lymphocytes # 0.88 L (0.90-5.00) 10*3/uL Monocytes # 0.71 (0.20-1.00) 10*3/uL Eosinophils # 0.02 L (0.04-0.35) 10*3/uL Basophils # 0.05 (0.00-0.10) 10*3/uL PT (10.0-12.5) sec INR (<1.2) APTT (22.0-30.0) sec Sodium 141 (137-145) mmol/L Potassium 3.7 (3.5-5.1) mmol/L Chloride 109 H (98-107) mmol/L Carbon Dioxide 20 L (22-30) mmol/L Anion Gap 12 mmol/L BUN 33 H (7-17) mg/dL Creatinine 1.12 H (0.52-1.04) mg/dL Est GFR (CKD-EPI)AfAm 63 (>60 ml/min/1.73 sqM) Est GFR (CKD-EPI)NonAf 54 (>60 ml/min/1.73 sqM) Glucose 142 H (74-99) mg/dL Lactic Ac Sepsis Rflx Plasma Lactic Acid Chris 2.4 H* (0.7-2.0) mmol/L Calcium 10.0 (8.4-10.2) mg/dL Total Bilirubin 0.8 (0.2-1.3) mg/dL AST 28 (14-36) U/L ALT 19 (4-34) U/L Alkaline Phosphatase 99 (38-126) U/L Troponin I (0.000-0.034) ng/mL Total Protein 7.5 (6.3-8.2) g/dL Albumin 4.6 (3.5-5.0) g/dL Urine Color Urine Appearance (Clear) Urine pH (5.0-8.0) Ur Specific [place] (1.001-1.035) Urine Protein (Negative) Urine Glucose (UA) (Negative) Urine Ketones (Negative) Urine Blood (Negative) Urine Nitrite (Negative) Urine Bilirubin (Negative) Urine Urobilinogen (<2.0) mg/dL Ur Leukocyte Esterase (Negative) Urine RBC (0-5) /hpf Urine WBC (0-5) /hpf Ur Squamous Epith Cells (0-4) /hpf Calcium Phosphate Cryst (None) /hpf Hyaline Casts (0-2) /lpf Urine Mucus (None) /hpf Influenza Type A (PCR) (Not Detectd) Influenza Type B (PCR) (Not Detectd) RSV (PCR) (Not Detectd) SARS-CoV-2 (PCR) (Not Detectd) 01/02/25 01/02/25 01/02/25 Range/Units 19:15 19:15 19:15 WBC (4.50-10.00) 10*3/uL RBC (4.10-5.20) 10*6/uL Hgb (12.0-15.0) g/dL Hct (37.2-46.3) % MCV (80.0-97.0) fL MCH (27.0-32.0) pg MCHC (32.0-37.0) g/dL Plt Count (140-440) 10*3/uL MPV (9.5-12.2) fL Immature Gran % (Auto) % Neutrophils % % Lymphocytes % % Monocytes % % Eosinophils % % Basophils % % Immature Gran # (0.00-0.04) 10*3/uL Neutrophils # (1.80-7.70) 10*3/uL Lymphocytes # (0.90-5.00) 10*3/uL Monocytes # (0.20-1.00) 10*3/uL Eosinophils # (0.04-0.35) 10*3/uL Basophils # (0.00-0.10) 10*3/uL PT 10.2 (10.0-12.5) sec INR 0.9 (<1.2) APTT 22.1 (22.0-30.0) sec Sodium (137-145) mmol/L Potassium (3.5-5.1) mmol/L Chloride (98-107) mmol/L Carbon Dioxide (22-30) mmol/L Anion Gap mmol/L BUN (7-17) mg/dL Creatinine (0.52-1.04) mg/dL Est GFR (CKD-EPI)AfAm (>60 ml/min/1.73 sqM) Est GFR (CKD-EPI)NonAf (>60 ml/min/1.73 sqM) Glucose (74-99) mg/dL Lactic Ac Sepsis Rflx Plasma Lactic Acid Chris (0.7-2.0) mmol/L Calcium (8.4-10.2) mg/dL Total Bilirubin (0.2-1.3) mg/dL AST (14-36) U/L ALT (4-34) U/L Alkaline Phosphatase (38-126) U/L Troponin I <0.012 (0.000-0.034) ng/mL Total Protein (6.3-8.2) g/dL Albumin (3.5-5.0) g/dL Urine Color Urine Appearance (Clear) Urine pH (5.0-8.0) Ur Specific [place] (1.001-1.035) Urine Protein (Negative) Urine Glucose (UA) (Negative) Urine Ketones (Negative) Urine Blood (Negative) Urine Nitrite (Negative) Urine Bilirubin (Negative) Urine Urobilinogen (<2.0) mg/dL Ur Leukocyte Esterase (Negative) Urine RBC (0-5) /hpf Urine WBC (0-5) /hpf Ur Squamous Epith Cells (0-4) /hpf Calcium Phosphate Cryst (None) /hpf Hyaline Casts (0-2) /lpf Urine Mucus (None) /hpf Influenza Type A (PCR) Not Detected (Not Detectd) Influenza Type B (PCR) Not Detected (Not Detectd) RSV (PCR) Not Detected (Not Detectd) SARS-CoV-2 (PCR) Not Detected (Not Detectd) 01/02/25 01/02/25 01/02/25 Range/Units 19:33 19:53 20:48 WBC (4.50-10.00) 10*3/uL RBC (4.10-5.20) 10*6/uL Hgb (12.0-15.0) g/dL Hct (37.2-46.3) % MCV (80.0-97.0) fL MCH (27.0-32.0) pg MCHC (32.0-37.0) g/dL Plt Count (140-440) 10*3/uL MPV (9.5-12.2) fL Immature Gran % (Auto) % Neutrophils % % Lymphocytes % % Monocytes % % Eosinophils % % Basophils % % Immature Gran # (0.00-0.04) 10*3/uL Neutrophils # (1.80-7.70) 10*3/uL Lymphocytes # (0.90-5.00) 10*3/uL Monocytes # (0.20-1.00) 10*3/uL Eosinophils # (0.04-0.35) 10*3/uL Basophils # (0.00-0.10) 10*3/uL PT (10.0-12.5) sec INR (<1.2) APTT (22.0-30.0) sec Sodium 141 (137-145) mmol/L Potassium 3.4 L (3.5-5.1) mmol/L Chloride 111 H (98-107) mmol/L Carbon Dioxide 24 (22-30) mmol/L Anion Gap 6 mmol/L BUN 32 H (7-17) mg/dL Creatinine 1.10 H (0.52-1.04) mg/dL Est GFR (CKD-EPI)AfAm 64 (>60 ml/min/1.73 sqM) Est GFR (CKD-EPI)NonAf 56 (>60 ml/min/1.73 sqM) Glucose 114 H (74-99) mg/dL Lactic Ac Sepsis Rflx Y Plasma Lactic Acid Chris (0.7-2.0) mmol/L Calcium 9.2 (8.4-10.2) mg/dL Total Bilirubin (0.2-1.3) mg/dL AST (14-36) U/L ALT (4-34) U/L Alkaline Phosphatase (38-126) U/L Troponin I (0.000-0.034) ng/mL Total Protein (6.3-8.2) g/dL Albumin (3.5-5.0) g/dL Urine Color Yellow Urine Appearance Cloudy H (Clear) Urine pH 5.5 (5.0-8.0) Ur Specific [place] 1.025 (1.001-1.035) Urine Protein Trace H (Negative) Urine Glucose (UA) Negative (Negative) Urine Ketones Negative (Negative) Urine Blood Trace H (Negative) Urine Nitrite Negative (Negative) Urine Bilirubin Negative (Negative) Urine Urobilinogen 3.0 (<2.0) mg/dL Ur Leukocyte Esterase Trace H (Negative) Urine RBC 4 (0-5) /hpf Urine WBC 7 H (0-5) /hpf Ur Squamous Epith Cells 2 (0-4) /hpf Calcium Phosphate Cryst Occasional H (None) /hpf Hyaline Casts 3 H (0-2) /lpf Urine Mucus Occasional H (None) /hpf Influenza Type A (PCR) (Not Detectd) Influenza Type B (PCR) (Not Detectd) RSV (PCR) (Not Detectd) SARS-CoV-2 (PCR) (Not Detectd) Disposition Clinical Impression: Gastroenteritis, SEB (acute kidney injury), Dehydration Disposition: HOME SELF-CARE Condition: Good Instructions (If sedation given, give patient instructions): Acute Nausea and Vomiting (ED) Additional Instructions: Bread, rice, applesauce, tea, toast. Increase water and Gatorade/Pedialyte i ntake. Hu tea/henry for nausea. Follow-up with PCP in the next 24-48 hours. Prescriptions: Ondansetron [Zofran] 4 mg PO Q8HR PRN #10 tab PRN Reason: Nausea Is patient prescribed a controlled substance at d/c from ED?: No Referrals: Rajinder Randall MD [Primary Care Provider] - 1-2 days Time of Disposition: 22:46
[2025-01-02] MEDS: FAMOTIDINE 20 MG/2 ML VIAL IV STA (19:18)
[2025-01-02] MEDS: SODIUM CHLORIDE 0.9% 1,000 ML IV STA (19:18)
[2025-01-02] MEDS: PANTOPRAZOLE 40 MG/10 ML VIAL IVP STA (19:18)
[2025-01-02 19:19] LABS: Basophils # (A) 0.05 10*3/uL (0.00-0.10); Basophils % (A) 0.4 %; Eosinophils # (A) 0.02 10*3/uL (0.04-0.35); Eosinophils % (A) 0.1 %; HCT 37.4 % (37.2-46.3); Lymphocytes # (A) 0.88 10*3/uL (0.90-5.00); Lymphocytes % (A) 6.5 %; MCH 32.1 pg (27.0-32.0); MCHC 34.8 g/dL (32.0-37.0); MCV 92.3 fL (80.0-97.0); Mean Platelet Volume 10.6 fL (9.5-12.2); Monocytes # (A) 0.71 10*3/uL (0.20-1.00); Monocytes % (A) 5.2 %; Neutrophils # (A) 11.84 10*3/uL (1.80-7.70); Neutrophils % (A) 87.4 %; Platelet Count 224 10*3/uL (140-440); RBC 4.05 10*6/uL (4.10-5.20); RDW 12.2 % (11.5-14.5); WBC 13.56 10*3/uL (4.50-10.00)
[2025-01-02] MEDS: LIDOCAINE VISCOUS 2% 15 ML CUP PO ONE ×2 (19:22→19:27)
[2025-01-02 19:28] VITALS: RESP 16
[2025-01-02 19:41] LABS: INR 0.9 (<1.2); Prothrombin Time 10.2 sec (10.0-12.5)
[2025-01-02 19:49] LABS: Partial Thromboplastin Time 22.1 sec (22.0-30.0)
[2025-01-02 19:50] LABS: Appearance,Urine Cloudy (Clear); Bilirubin,Urine Negative (Negative); Blood,Urine Trace (Negative); Calcium Phosphate Crystals,Ur Occasional /hpf; Color,Urine Yellow; Glucose,Urine (UA) Negative (Negative); Hyaline Casts,Urine 3 /lpf (0-2); Ketones,Urine Negative (Negative); Leukocyte Esterase,Urine Trace (Negative); Mucus,Urine Occasional /hpf; Nitrite,Urine Negative (Negative); PH, Urine 5.5 (5.0-8.0); Protein,Urine Trace (Negative); RBC,Urine 4 /hpf (0-5); Specific Gravity,Urine 1.025 (1.001-1.035); Squamous Epithelial Cell,Urine 2 /hpf (0-4); WBC,Urine 7 /hpf (0-5)
[2025-01-02 19:55] LABS: Influenza A Not Detected (Not Detectd); Influenza B Not Detected (Not Detectd); RSV Not Detected (Not Detectd)
[2025-01-02 20:05] LABS: ALT 19 U/L (4-34); AST 28 U/L (14-36); African American GFR (CKD) 63 (>60 ml/min/1.73 sqM); Albumin 4.6 g/dL (3.5-5.0); Alkaline Phosphatase 99 U/L (38-126); Anion Gap 12 mmol/L; Blood Urea Nitrogen 33 mg/dL (7-17); Carbon Dioxide 20 mmol/L (22-30); Chloride 109 mmol/L (98-107); Glucose 142 mg/dL (74-99); Non-African American GFR(CKD) 54 (>60 ml/min/1.73 sqM); Potassium 3.7 mmol/L (3.5-5.1); Sodium 141 mmol/L (137-145); Total Bilirubin 0.8 mg/dL (0.2-1.3); Total Protein 7.5 g/dL (6.3-8.2)
--- NOTE | 2025-01-02 20:15 | XR ---
EXAMINATION TYPE: XR chest 2V DATE OF EXAM: 01/02/2025 7:37 PM COMPARISON: Chest radiographs from 05/13/2021 CLINICAL INDICATION: Female, 59 years old with history of Epigastric pain; TECHNIQUE: XR chest 2V Frontal and lateral views of the chest. FINDINGS: Lungs/Pleura: There is no evidence of pleural effusion, focal consolidation, or pneumothorax. Pulmonary vascularity: Unremarkable. Heart/mediastinum: Cardiomediastinal silhouette is unremarkable. Musculoskeletal: No acute osseous pathology. IMPRESSION: No acute cardiopulmonary disease/process. [facility], , 01/02/2025 8:13 PM
[2025-01-02] MEDS: ACETAMINOPHEN TAB 500 MG TAB PO STA (20:45)
[2025-01-02] MEDS: SODIUM CHLORIDE 0.9% 500 ML 500 ML IV STA (21:09)
[2025-01-02 21:55] LABS: African American GFR (CKD) 64 (>60 ml/min/1.73 sqM); Anion Gap 6 mmol/L; Blood Urea Nitrogen 32 mg/dL (7-17); Calcium 9.2 mg/dL (8.4-10.2); Carbon Dioxide 24 mmol/L (22-30); Chloride 111 mmol/L (98-107); Glucose 114 mg/dL (74-99); Non-African American GFR(CKD) 56 (>60 ml/min/1.73 sqM); Potassium 3.4 mmol/L (3.5-5.1); Sodium 141 mmol/L (137-145)
[2025-01-02] MEDS: POTASSIUM CHLORIDE ER 20 MEQ TAB.ER PO STA (22:20)
[2025-01-02 22:22] VITALS: BP 105/58; PULSE 101
[2025-01-02] MEDS: ONDANSETRON 4 MG ODT STARTER PACK 2 TAB BTL PO STA (23:06)
[2025-01-02] MEDS: ONDANSETRON 4 MG/2 ML VIAL IVP STA (23:06)
[2025-01-02] MEDS: POTASSIUM BICARBONATE/CIT AC 20 MEQ TABLET.EFF PO ONE (23:06)
== END 2025-01-02 23:38 | disposition home or self-care (01) ==
LOC: EC 18:36
DX: K52.9 Noninfective gastroenteritis and colitis, unspecified (principal); N17.9 Acute kidney failure, unspecified; E86.0 Dehydration; Z87.891 Personal history of nicotine dependence; Z88.5 Allergy status to narcotic agent; Z88.8 Allergy status to other drugs, medicaments and biological substances
CPT/HCPCS: 36415; 93005; 80053; 80048; 83605; 84484; 85025; 85610; 85730; 81001; 87636; 71046; 99284; 96374; 96375 ×2; 96361; J2405; S0119; J2470; J1308